=== PATIENT | female | born 1955 | race Caucasian/White ===

== ENCOUNTER → 2018-05-30 12:22 | Outpatient (CLI) | payer OTHER, SELFPAY ==
--- NOTE | 2018-05-30 | DI.MG.S_ITS ---
BILATERAL DIGITAL SCREENING MAMMOGRAM 3D/2D WITH CAD: 05/30/2018 CLINICAL: Routine screening. Comparison is made to exams dated: 12/16/2013 mammogram, 03/27/2007 mammogram, and 07/20/2011 mammogram - [facility]. The tissue of both breasts is heterogeneously dense. This may lower the sensitivity of mammography. Current study was also evaluated with a Computer Aided Detection (CAD) system. No significant masses, calcifications, or other findings are seen in either breast. There has been no significant interval change. IMPRESSION: NEGATIVE There is no mammographic evidence of malignancy. A 1 year screening mammogram is recommended. This exam was interpreted at Station ID: [id number]. NOTE: For mammograms, a report in lay terms will be sent to the patient. Approximately 15% of breast malignancies will not be visualized mammographically. In the management of a palpable breast mass, a negative mammogram must not discourage biopsy of a clinically suspicious lesion. Electronically Signed By: Bita matthew/sandrita:06/01/2018 08:38:02 letter sent: Normal Exam ACR BI-RADS Category 1: Negative [id number]
== END ==
PROVIDERS: PCP Internal Medicine; Visit Provider Internal Medicine
DX: Z12.31 Encounter for screening mammogram for malignant neoplasm of breast (principal)
CPT/HCPCS: 77063; 77067

== ENCOUNTER → 2019-02-22 12:49 | Outpatient (CLI) | payer OTHER, SELFPAY ==
--- NOTE | 2019-02-22 | DI.RAD.S_ITS ---
PROCEDURE: XR HAND LT MIN 3V INDICATIONS: PAIN OF LEFT THUMB TECHNIQUE: 3 views of the hand(s) acquired. COMPARISON: None. FINDINGS: Bones: No fractures or dislocations. Carpal bones are normally aligned. No suspicious bony lesions. First CMC and triscaphe joint degeneration Soft tissues: No suspicious soft tissue calcifications. IMPRESSION: Degenerative changes as above. If the patient's pain or other symptoms persist, consider further evaluation with MRI Dictated by: Kieran Oliva M.D. on 02/22/2019 at 13:24 Approved by: Kieran Oliva M.D. on 02/22/2019 at 13:27
== END ==
PROVIDERS: PCP Internal Medicine; Visit Provider Internal Medicine
DX: M79.645 Pain in left finger(s) (principal); M18.12 Unilateral primary osteoarthritis of first carpometacarpal joint, left hand; M19.032 Primary osteoarthritis, left wrist
CPT/HCPCS: 73130

== ENCOUNTER → 2019-10-28 10:48 | Outpatient (CLI) | payer OTHER, SELFPAY ==
[2019-10-28 11:59] LABS: Add Manual Diff / Slide Review NO; Basophils Absolute Auto 0 /uL (0-100); Basophils Percent Auto 0.8 % (0-2); Eosinophils Absolute Auto 100 /uL (0-450); Eosinophils Percent Auto 2.1 % (2-4); Hemoglobin 13.4 g/dL (12.0-16.0); Lymphocytes Absolute Auto 1300 /uL (1100-4500); Lymphocytes Percent Auto 28.8 % (25-40); Mean Corpuscular HGB Conc 33.5 % (30-36); Mean Corpuscular Volume 104.3 fL (80-100); Monocytes Absolute Auto 300 /uL (0-900); Monocytes Percent Auto 7.6 % (3-14); Neutrophils Absolute Auto 2700 /uL (1500-7000); Neutrophils Percent Auto 60.7 % (50-75); Platelet Count 200 X10^3/uL (150-400); Red Blood Cell Count 3.83 X10^6/uL (4.0-5.2); Red Cell Distribution Width 12.3 % (11.6-14.8); White Blood Cell Count 4.4 X10^3/uL (4.5-11.0)
[2019-10-28 12:05] LABS: Aspartate Aminotransferase 60 IU/L (14-36); BUN Creatinine Ratio 28.3 (6-22); Blood Urea Nitrogen 17 mg/dL (7-17); Calcium 9.3 mg/dL (8.4-10.2); Carbon Dioxide 27 mmol/L (22-32); Chloride 106 mmol/L (98-107); Cholesterol 201 mg/dL (140-199); Estimated Glomerular Filt Rate > 60.0 mL/min (>60); Glucose 111 mg/dL (80-110); HDL Cholesterol 83 mg/dL (40-60); HEMOLYSIS < 15 (0-50); LDL Cholesterol Calculated 104 mg/dL (<100); Potassium 4.6 mmol/L (3.4-5.1); Sodium 142 mmol/L (137-145); Triglycerides 72 mg/dL (35-150)
[2019-10-28 13:00] LABS: TSH w/ Reflex to FT4 3.48 uIU/mL (0.47-4.68)
== END ==
PROVIDERS: PCP Internal Medicine; Referring Provider Internal Medicine; Visit Provider Internal Medicine
DX: E03.9 Hypothyroidism, unspecified (principal); E78.2 Mixed hyperlipidemia; I10 Essential (primary) hypertension; I25.10 Atherosclerotic heart disease of native coronary artery without angina pectoris
CPT/HCPCS: 36415; 80048; 80061; 84443; 84450; 85025

== ENCOUNTER → 2019-11-03 13:53 | Outpatient (CLI) | payer OTHER, SELFPAY ==
--- NOTE | 2019-11-03 | DI.CT.S_ITS ---
PROCEDURE: CT ANGIO HEAD INDICATIONS: Nontraumatic subarachnoid hemorrhage, unspecified TECHNIQUE: Precontrast 4.5 mm thick angled axial sections acquired from the foramen magnum to the vertex. After the administration of intravenous contrast, 1 mm thick sections acquired through the [place] of [place]. Postcontrast 4.5 mm thick sections then re-acquired from the foramen magnum to the vertex. 10 mm thick iwlrsko-iettdtxed-ehsjgiaixr (MIP) reformats were acquired of the central intracranial vasculature. For radiation dose reduction, the following was used: automated exposure control, adjustment of mA and/or kV according to patient size. COMPARISON: [facility], CT, C-SPINE WITHOUT CONTRAST, 08/24/2017, 22:25. [facility], CT, HEAD WITHOUT CONTRAST, 08/24/2017, 22:25. [facility], CT, HEAD WITHOUT CONTRAST, 09/09/2016, 11:37. [facility], CT, HEAD WITHOUT CONTRAST, 03/24/2015, 8:44. [facility], CT, HEAD WITHOUT CONTRAST, 04/22/2014, 12:57. [facility], CT, ANGIO HEAD, 03/22/2015, 12:06. FINDINGS: Image quality: Excellent. Anterior circulation: Intracranial internal carotid arteries are normal in size and flow. The flow within the paired anterior cerebral arteries is normal and symmetric. The flow within the middle cerebral arteries is normal and symmetric. The anterior communicating artery is seen. No aneurysms are seen. Posterior circulation: Visualized portions of the vertebral arteries demonstrate normal caliber, and join to form a normal appearing basilar artery. Flow within the posterior cerebral arteries is normal and symmetric. No aneurysms are seen. CSF spaces: Ventricles are normal in size and shape. Basal cisterns are patent. No extra-axial fluid collections. Brain: No midline shift. No intracranial bleeds or masses. Velasco-white matter interface appears intact. Skull and face: Calvarium and facial bones appear intact, without suspicious lesions. Sinuses: Visualized sinuses and mastoids are clear. IMPRESSION: No intracranial hemorrhage is found. Intracranial CT angiogram appears normal for age. Please note that occasionally a small aneurysm may be identifiable by catheter angiography when not accurately detected by CT or MR angiography. Dictated by: Arsalan Horan M.D. on 11/03/2019 at 15:37 Approved by: Arsalan Horan M.D. on 11/03/2019 at 15:44
== END ==
PROVIDERS: PCP Internal Medicine; Referring Provider Internal Medicine; Visit Provider Internal Medicine
DX: I60.9 Nontraumatic subarachnoid hemorrhage, unspecified (principal)
CPT/HCPCS: 70496; Q9967

== ENCOUNTER 2019-11-17 16:42 | Emergency (ER) | payer OTHER, SELFPAY ==
[2019-11-17 16:47] VITALS: BP 187/74; PULSE 89; RESP 14; TEMP 35.9; O2SAT 100; BMI 17.9
[2019-11-17 17:51] LABS: Add Manual Diff / Slide Review NO; Basophils Absolute Auto 0 /uL (0-100); Basophils Percent Auto 0.6 % (0-2); Eosinophils Absolute Auto 0 /uL (0-450); Eosinophils Percent Auto 0.4 % (2-4); Hematocrit 42.2 % (36-46); Hemoglobin 14.4 g/dL (12.0-16.0); Lymphocytes Absolute Auto 900 /uL (1100-4500); Lymphocytes Percent Auto 11.8 % (25-40); Mean Corpuscular HGB Conc 34.1 % (30-36); Mean Corpuscular Hemoglobin 35.7 PG (26-34); Mean Corpuscular Volume 104.6 fL (80-100); Monocytes Absolute Auto 600 /uL (0-900); Monocytes Percent Auto 7.8 % (3-14); Neutrophils Absolute Auto 6000 /uL (1500-7000); Neutrophils Percent Auto 79.4 % (50-75); Platelet Count 183 X10^3/uL (150-400); Red Blood Cell Count 4.03 X10^6/uL (4.0-5.2); Red Cell Distribution Width 12.4 % (11.6-14.8); White Blood Cell Count 7.6 X10^3/uL (4.5-11.0)
[2019-11-17 18:01] LABS: INR 1.2 (0.9-1.3); Prothrombin Time 13.4 SECONDS (10.1-12.7)
[2019-11-17 18:03] LABS: PTT Partial Thromboplastin Tim 28 SECONDS (26.4-36.2)
[2019-11-17] MEDS: MORPHINE 4 MG/ML INJ IV ×2 (18:03→18:57)
[2019-11-17] MEDS: SODIUM CHLORIDE 0.9% 500 ML 1000 ML IV (18:03)
[2019-11-17] MEDS: ONDANSETRON 4 MG/2 ML INJ IV (18:03)
[2019-11-17 18:36] LABS: Amylase 70 U/L (30-110)
[2019-11-17 18:37] LABS: Alanine Aminotransferase 22 IU/L (<35); Albumin 4.4 g/dL (3.5-5.0); Albumin Globulin Ratio 1.4 (1.0-2.8); Alkaline Phosphatase 96 U/L (38-126); Aspartate Aminotransferase 27 IU/L (14-36); Bilirubin Total 0.6 mg/dL (0.2-1.3); Blood Urea Nitrogen 14 mg/dL (7-17); Calcium 9.4 mg/dL (8.4-10.2); Carbon Dioxide 26 mmol/L (22-32); Chloride 108 mmol/L (98-107); Estimated Glomerular Filt Rate > 60.0 mL/min (>60); Globulin 3.2 g/dL (1.7-4.1); Glucose 108 mg/dL (80-110); HEMOLYSIS < 15 (0-50); Lipase 53 U/L (23-300); Potassium 4.5 mmol/L (3.4-5.1); Sodium 140 mmol/L (137-145); Total Protein 7.6 g/dL (6.3-8.2)
--- NOTE | 2019-11-17 18:42 | DI.CT.S_ITS ---
PROCEDURE: CT ABDOMEN PELVIS W CON INDICATIONS: LLQ pain TECHNIQUE: After the administration of intravenous contrast, 5 mm thick sections acquired from the diaphragm to the symphysis. 5 mm coronal and sagittal reformats were acquired. For radiation dose reduction, the following was used: automated exposure control, adjustment of mA and/or kV according to patient size. COMPARISON: [facility], CT, ABDOMEN/PELVIS WITH CONTRAST, 10/21/2016, 12:20. FINDINGS: Image quality: Excellent. ABDOMEN: Lung bases: Lung bases are clear. Heart size is normal. Solid organs: Liver is normal in size and enhancement. Hepatic steatosis is seen. Gallbladder is within normal limits. Biliary system is non dilated. Pancreas enhances normally. There is laceration involving spleen measures up to 1.9 cm in depth with small perisplenic fluid collection suggestive of subcapsular hematoma. No adrenal nodules. Kidneys demonstrate normal size and enhancement, without hydronephrosis. Peritoneum and bowel: Bowel loops demonstrate normal wall thickness and caliber. No free air. Small amount of free fluid in lower pelvis is seen. Nodes and vessels: No retroperitoneal or mesenteric adenopathy by size criteria. Aorta and inferior vena cava are normal in size. Miscellaneous: No ventral hernias. PELVIS: Genitourinary: Bladder wall thickness is normal. Miscellaneous: No inguinal hernias or adenopathy. Bones: No suspicious bony lesions. No vertebral body compression fractures. IMPRESSION: 1. Finding is consistent with grade 2 splenic laceration with small subcapsular hematoma. Small amount of free fluid in left lower pelvis. 2. No other solid organ injury is seen abdomen or pelvis. No peritoneal free air. No bowel obstruction. Hepatic steatosis. Dictated by: Tanvir Austin M.D. on 11/17/2019 at 19:33 Approved by: Tanvir Austin M.D. on 11/17/2019 at 19:37
[2019-11-17 19:54] VITALS: BP 188/78; PULSE 74; RESP 21; O2SAT 99
[2019-11-17 20:21] LABS: Ethanol (ETOH) < 10 mg/dL
[2019-11-17 20:23] LABS: Monotest Negative (Negative)
[2019-11-17] MEDS: HYDROCODONE/ACET 5/325 TABLET 2 TAB PO (20:37)
--- NOTE | 2019-11-17 21:04 | ED_ITS ---
HPI - Abdominal Pain <SOILA FernandezBC - Last Filed: 11/17/19 21:13> General Chief Complaint: Abdominal Pain Stated Complaint: L abdominal pain x3 days Time Seen by Provider: 11/17/19 16:56 Source: patient Mode of arrival: Ambulatory Limitations: no limitations History of Present Illness HPI narrative: The patient is a 64-year-old female current smoker with history of brain aneurysm not on blood thinners who presents with a chief complaint of left-sided abdominal pain for 3 days. She denies any falls or trauma, denies any history of mononucleosis. She denies any fevers nausea vomiting or diarrhea. She denies any chest pain shortness of breath. She denies any fever. She denies any cough. She states that this is pain that is nonradiating on the left side of her abdomen. She denies any dysuria urgency or frequency. She denies any vaginal discharge. She states she last moved her bowels this morning and it was normal. She states that she has been eating and drinking well, most recently this morning. Upon solo interview without her , the patient denies any physical trauma or abuse. She denies any physical violence towards her. Related Data Home Medications Medication Instructions Recorded Confirmed alprazolam 0.5 mg PO DAILY 11/17/19 11/17/19 carisoprodol 350 mg PO QID PRN 11/17/19 11/17/19 diclofenac sodium 1 g TOPICAL QID PRN 11/17/19 11/17/19 hydrocodone-acetaminophen [[place]] 1 tab PO Q6H PRN 11/17/19 11/17/19 metoprolol succinate 50 mg PO DAILY 11/17/19 11/17/19 Allergies Allergy/AdvReac Type Severity Reaction Status Date / Time meperidine [MEPERIDINE] Allergy Unknown Verified 11/17/19 16:47 Review of Systems <MARC Fernandez - Last Filed: 11/17/19 21:13> Review of Systems Narrative: GENERAL: Denies chills, fatigue, malaise, fever, sweats. HEENT: Denies sinus pain, ear pain, sore throat, difficulty swallowing, dizziness. RESPIRATORY: Denies dyspnea, cough, wheezing, hemoptysis, sputum. CARDIOVASCULAR: Denies chest pain, palpitations, orthopnea, edema, GASTROINTESTINAL: See HPI : Denies dysuria, frequency, incontinence, hematuria, urinary retention. MUSCULOSKELETAL: denies weakness, joint pain, or bony pain SKIN: Denies rash, skin lesions, or other NEUROLOGIC: Denies weakness, headache, numbness, change in speech, confusion, seizures, incoordination. PSYCHIATRIC: No concerning psychosocial issues. 12 point review of systems is negative except for those stated above Patient History <Manda PatelRONNIE-NATALIE - Last Filed: 11/17/19 21:13> Social History Smoking Status: Current every day smoker Smoking Status: Current every day smoker alcohol intake frequency: a few times a week Alcohol type: wine Substance Use Type: does not use Exam <Manda PatelMARC - Last Filed: 11/17/19 21:13> Narrative Exam Narrative: GENERAL: Thin female who appears uncomfortable HEAD: Atraumatic. Normocephalic. No temporal or scalp tenderness. EYES: Pupils equal round and reactive. Extraocular motions intact. No scleral icterus. No injection or drainage. ENT: Nose without bleeding, purulent drainage or septal hematoma. Throat without erythema, tonsillar hypertrophy or exudate. Uvula midline. Airway patent. NECK: Trachea midline. No JVD or lymphadenopathy. Supple, nontender, no meningeal signs. CARDIOVASCULAR: Regular rate and rhythm without murmurs, gallops, or rubs. RESPIRATORY: Clear to auscultation. Breath sounds equal bilaterally. No wheezes, rales, or rhonchi. No cough. No increased respiratory effort. No accessory muscle use. GASTROINTESTINAL: Abdomen soft, active bowel sounds all 4 quadrants. Pain to palpation with guarding noted left mid abdomen. No pain to palpation right lower quadrant. No pain at McBurney's point EXTREMITIES: No clubbing, cyanosis, or edema. No joint tenderness, effusion, or edema noted. BACK: Nontender without deformity or crepitance. No flank tenderness. NEURO: AOx3. SKIN: No rash or erythema on visible skin. Slightly mottled looking appearance. Patient states this is normal for her. Initial Vital Signs Initial Vital Signs: Vital Signs Temperature 96.6 F L 11/17/19 16:47 Pulse Rate 89 11/17/19 16:47 Respiratory Rate 14 11/17/19 16:47 Blood Pressure 187/74 H 11/17/19 16:47 Pulse Oximetry 100 11/17/19 16:47 <Manda Angeles DO - Last Filed: 11/18/19 05:36> Initial Vital Signs Initial Vital Signs: Vital Signs Temperature 96.6 F L 11/17/19 16:47 Pulse Rate 89 11/17/19 16:47 Respiratory Rate 14 11/17/19 16:47 Blood Pressure 187/74 H 11/17/19 16:47 Pulse Oximetry 100 11/17/19 16:47 Course <MARC Fernandez - Last Filed: 11/17/19 21:13> Orders Ordered: Discontinued Medications Hydrocodone Bitart/Acetaminophen ([place] 5/325) 2 tab PO NOW ONE Stop: 11/17/19 20:34 Last Admin: 11/17/19 20:37 Dose: 2 tab Documented by: DELON Sodium Chloride (Normal Saline 0.9%) 500 mls @ 1,000 mls/hr IV BOLUS ONE Stop: 11/17/19 18:13 Last Infusion: 11/17/19 18:57 Dose: 0 mls/hr Documented by: Admin: 11/17/19 18:03 Dose: 1,000 mls/hr Documented by: SURJIT Morphine Sulfate (Morphine) 4 mg IV NOW ONE Stop: 11/17/19 17:45 Last Admin: 11/17/19 18:03 Dose: 4 mg Documented by: SURJIT Morphine Sulfate (Morphine) 4 mg IV NOW ONE Stop: 11/17/19 18:28 Last Admin: 11/17/19 18:57 Dose: 4 mg Documented by: DELON Ondansetron HCl (Zofran) 4 mg IV NOW ONE Stop: 11/17/19 17:45 Last Admin: 11/17/19 18:03 Dose: 4 mg Documented by: SURJIT Consultations Consultation #1: Given the patient's CT results, I spoke with Dr. Fish, surgeon on-call. He states that the patient would be safe to go home as she has had pain for 3 days and her hemoglobin is at 14. Additionally she is not tachycardic, not hypotensive. I discussed her mom looking appearance, but the patient states that this is normal for her. He encourage is daily or every other day hemoglobin and hematocrit drawings by her primary care provider. Discussed at length rest, avoiding trauma, not drinking etcetera. Time: 20:30 Vital Signs Vital signs: Vital Signs - 8 hr 11/17/19 16:47 11/17/19 19:54 Temperature 96.6 F L Pulse Rate 89 74 Respiratory Rate 14 21 Blood Pressure 187/74 H Blood Pressure [Left Arm] 188/78 H Pulse Oximetry 100 99 <Manda Angeles DO - Last Filed: 11/18/19 05:36> Orders Ordered: Discontinued Medications Hydrocodone Bitart/Acetaminophen ([place] 5/325) 2 tab PO NOW ONE Stop: 11/17/19 20:34 Last Admin: 11/17/19 20:37 Dose: 2 tab Documented by: DELON Sodium Chloride (Normal Saline 0.9%) 500 mls @ 1,000 mls/hr IV BOLUS ONE Stop: 11/17/19 18:13 Last Infusion: 11/17/19 18:57 Dose: 0 mls/hr Documented by: Admin: 11/17/19 18:03 Dose: 1,000 mls/hr Documented by: SURJIT Morphine Sulfate (Morphine) 4 mg IV NOW ONE Stop: 11/17/19 17:45 Last Admin: 11/17/19 18:03 Dose: 4 mg Documented by: SURJIT Morphine Sulfate (Morphine) 4 mg IV NOW ONE Stop: 11/17/19 18:28 Last Admin: 11/17/19 18:57 Dose: 4 mg Documented by: DELON Ondansetron HCl (Zofran) 4 mg IV NOW ONE Stop: 11/17/19 17:45 Last Admin: 11/17/19 18:03 Dose: 4 mg Documented by: SURJIT Vital Signs Vital signs: Vital Signs - 8 hr 11/17/19 16:47 11/17/19 19:54 Temperature 96.6 F L Pulse Rate 89 74 Respiratory Rate 14 21 Blood Pressure 187/74 H Blood Pressure [Left Arm] 188/78 H Pulse Oximetry 100 99 MDM - Abdominal Pain <MARC Fernandez - Last Filed: 11/17/19 21:13> Lab Data Result diagrams: 11/17/19 17:40 11/17/19 18:26 Labs: Lab Results 11/17/19 11/17/19 11/17/19 Range/Units 17:40 17:40 18:14 WBC 7.6 (4.5-11.0) X10^3/uL RBC 4.03 (4.0-5.2) X10^6/uL Hgb 14.4 (12.0-16.0) g/dL Hct 42.2 (36-46) % MCV 104.6 H (80-100) fL MCH 35.7 H (26-34) PG MCHC 34.1 (30-36) % RDW 12.4 (11.6-14.8) % Plt Count 183 (150-400) X10^3/uL Neut % (Auto) 79.4 H (50-75) % Lymph % (Auto) 11.8 L (25-40) % [place] % (Auto) 7.8 (3-14) % Eos % (Auto) 0.4 L (2-4) % Baso % (Auto) 0.6 (0-2) % Neut # (Auto) 6000 (1323-7778) /uL Lymph # (Auto) 900 L (6422-6481) /uL [place] # (Auto) 600 (0-900) /uL Eos # (Auto) 0 (0-450) /uL Baso # (Auto) 0 (0-100) /uL PT 13.4 H (10.1-12.7) SECONDS INR 1.2 (0.9-1.3) APTT 28 (26.4-36.2) SECONDS Sodium (137-145) mmol/L Potassium (3.4-5.1) mmol/L Chloride (98-107) mmol/L Carbon Dioxide (22-32) mmol/L BUN (7-17) mg/dL Creatinine (0.52-1.04) mg/dL Estimated GFR (>60) mL/min BUN/Creatinine Ratio (6-22) Glucose (80-110) mg/dL Calcium (8.4-10.2) mg/dL Total Bilirubin (0.2-1.3) mg/dL AST (14-36) IU/L ALT (<35) IU/L Alkaline Phosphatase (38-126) U/L Total Protein (6.3-8.2) g/dL Albumin (3.5-5.0) g/dL Globulin (1.7-4.1) g/dL Albumin/Globulin Ratio (1.0-2.8) Amylase (30-110) U/L Lipase (23-300) U/L Ethyl Alcohol ( - 10) mg/dL Monoscreen Negative (Negative) 11/17/19 11/17/19 11/17/19 Range/Units 18:14 18:18 18:26 WBC (4.5-11.0) X10^3/uL RBC (4.0-5.2) X10^6/uL Hgb (12.0-16.0) g/dL Hct (36-46) % MCV (80-100) fL MCH (26-34) PG MCHC (30-36) % RDW (11.6-14.8) % Plt Count (150-400) X10^3/uL Neut % (Auto) (50-75) % Lymph % (Auto) (25-40) % [place] % (Auto) (3-14) % Eos % (Auto) (2-4) % Baso % (Auto) (0-2) % Neut # (Auto) (5939-4908) /uL Lymph # (Auto) (5154-2478) /uL [place] # (Auto) (0-900) /uL Eos # (Auto) (0-450) /uL Baso # (Auto) (0-100) /uL PT (10.1-12.7) SECONDS INR (0.9-1.3) APTT (26.4-36.2) SECONDS Sodium 140 (137-145) mmol/L Potassium 4.5 (3.4-5.1) mmol/L Chloride 108 H (98-107) mmol/L Carbon Dioxide 26 (22-32) mmol/L BUN 14 (7-17) mg/dL Creatinine 0.50 L (0.52-1.04) mg/dL Estimated GFR > 60.0 (>60) mL/min BUN/Creatinine Ratio 28.0 H (6-22) Glucose 108 (80-110) mg/dL Calcium 9.4 (8.4-10.2) mg/dL Total Bilirubin 0.6 (0.2-1.3) mg/dL AST 27 (14-36) IU/L ALT 22 (<35) IU/L Alkaline Phosphatase 96 (38-126) U/L Total Protein 7.6 (6.3-8.2) g/dL Albumin 4.4 (3.5-5.0) g/dL Globulin 3.2 (1.7-4.1) g/dL Albumin/Globulin Ratio 1.4 (1.0-2.8) Amylase 70 (30-110) U/L Lipase 53 (23-300) U/L Ethyl Alcohol < 10 ( - 10) mg/dL Monoscreen (Negative) Point of care testing: Urine Dip Bedside Urine Glucose Negative Bedside Urine Bilirubin - Negative Bedside Urine Ketone - Negative Urine Specific [place] 1.010 Bedside Urine Occult Blood - Negative Bedside Urine pH 6.0 Bedside Urine Protein - Negative Bedside Urine Urobilinogen - Negative Bedside Urine Nitrite - Negative Bedside Urine Leukocytes - Negative Esterase Imaging Data CT scan - abdomen/pelvis: Radiologist's Impression: [address] [place] [id number] Scan Report Signed Patient: Chelsy Perez LMR#: [id number] : 5Acct:[id number] Age/Sex: 64 / FDate of Service: 11/17/19 Loc: ED Accession Number: [id number] Procedure: CT abdomen pelvis w con Ordering Provider: Manda Patel [facility]- PROCEDURE: CT ABDOMEN PELVIS W CON INDICATIONS: LLQ pain TECHNIQUE: After the administration of intravenous contrast, 5 mm thick sections acquired from the diaphragm to the symphysis. 5 mm coronal and sagittal reformats were acquired. For radiation dose reduction, the following was used: automated exposure control, adjustment of mA and/or kV according to patient size. COMPARISON: [facility], CT, ABDOMEN/PELVIS WITH CONTRAST, 10/21/2016, 12:20. FINDINGS: Image quality: Excellent. ABDOMEN: Lung bases: Lung bases are clear. Heart size is normal. Solid organs: Liver is normal in size and enhancement. Hepatic steatosis is seen. Gallbladder is within normal limits. Biliary system is non dilated. Pancreas enhances normally. There is laceration involving spleen measures up to 1.9 cm in depth with small perisplenic fluid collection suggestive of subcapsular hematoma. No adrenal nodules. Kidneys demonstrate normal size and enhancement, without hydronephrosis. Peritoneum and bowel: Bowel loops demonstrate normal wall thickness and caliber. No free air. Small amount of free fluid in lower pelvis is seen. Nodes and vessels: No retroperitoneal or mesenteric adenopathy by size criteria. Aorta and inferior vena cava are normal in size. Miscellaneous: No ventral hernias. PELVIS: Genitourinary: Bladder wall thickness is normal. Miscellaneous: No inguinal hernias or adenopathy. Bones: No suspicious bony lesions. No vertebral body compression fractures. IMPRESSION: 1. Finding is consistent with grade 2 splenic laceration with small subcapsular hematoma. Small amount of free fluid in left lower pelvis. 2. No other solid organ injury is seen abdomen or pelvis. No peritoneal free air. No bowel obstruction. Hepatic steatosis. Dictated by: Tanvir Austin M.D. on 11/17/2019 at 19:33 Approved by: Tanvir Austin M.D. on 11/17/2019 at 19:37 MDM Narrative Medical decision making narrative: The patient is a 64-year-old female who presents with a chief complaint of left-sided abdominal pain for 3 days. She initially denied any trauma has no signs of systemic illness and is afebrile. She is eating and drinking well. Lab work is grossly normal with normal hemoglobin and hematocrit. She is not hypotensive, not tachycardic. CT shows grade 2 splenic lack with small subcapsular hematoma. I spoke with surgery on- call, who states the patient could go home with very strict PCP follow-up and lab work to check hemoglobin hematocrit every day or every other day. The patient states understanding of this and is very happy to go home. She states that she has Vicodin at home as per her pain contract and will follow up with primary care provider. I discussed at length safety precautions, avoiding trauma, avoiding alcohol etcetera. Discussed at length strict return precautions of any acute concerns such as syncope, etcetera. Patient has been of no questions or concerns upon discharge and state understanding of return precautions as well as follow-up care. <Manda Angeles, DO - Last Filed: 11/18/19 05:36> Lab Data Attestation: I reviewed the patient's lab results. Labs: Lab Results 11/17/19 11/17/19 11/17/19 Range/Units 17:40 17:40 18:14 WBC 7.6 (4.5-11.0) X10^3/uL RBC 4.03 (4.0-5.2) X10^6/uL Hgb 14.4 (12.0-16.0) g/dL Hct 42.2 (36-46) % MCV 104.6 H (80-100) fL MCH 35.7 H (26-34) PG MCHC 34.1 (30-36) % RDW 12.4 (11.6-14.8) % Plt Count 183 (150-400) X10^3/uL Neut % (Auto) 79.4 H (50-75) % Lymph % (Auto) 11.8 L (25-40) % [place] % (Auto) 7.8 (3-14) % Eos % (Auto) 0.4 L (2-4) % Baso % (Auto) 0.6 (0-2) % Neut # (Auto) 6000 (7118-6595) /uL Lymph # (Auto) 900 L (9200-8625) /uL [place] # (Auto) 600 (0-900) /uL Eos # (Auto) 0 (0-450) /uL Baso # (Auto) 0 (0-100) /uL PT 13.4 H (10.1-12.7) SECONDS INR 1.2 (0.9-1.3) APTT 28 (26.4-36.2) SECONDS Sodium (137-145) mmol/L Potassium (3.4-5.1) mmol/L Chloride (98-107) mmol/L Carbon Dioxide (22-32) mmol/L BUN (7-17) mg/dL Creatinine (0.52-1.04) mg/dL Estimated GFR (>60) mL/min BUN/Creatinine Ratio (6-22) Glucose (80-110) mg/dL Calcium (8.4-10.2) mg/dL Total Bilirubin (0.2-1.3) mg/dL AST (14-36) IU/L ALT (<35) IU/L Alkaline Phosphatase (38-126) U/L Total Protein (6.3-8.2) g/dL Albumin (3.5-5.0) g/dL Globulin (1.7-4.1) g/dL Albumin/Globulin Ratio (1.0-2.8) Amylase (30-110) U/L Lipase (23-300) U/L Ethyl Alcohol ( - 10) mg/dL Monoscreen Negative (Negative) 11/17/19 11/17/19 11/17/19 Range/Units 18:14 18:18 18:26 WBC (4.5-11.0) X10^3/uL RBC (4.0-5.2) X10^6/uL Hgb (12.0-16.0) g/dL Hct (36-46) % MCV (80-100) fL MCH (26-34) PG MCHC (30-36) % RDW (11.6-14.8) % Plt Count (150-400) X10^3/uL Neut % (Auto) (50-75) % Lymph % (Auto) (25-40) % [place] % (Auto) (3-14) % Eos % (Auto) (2-4) % Baso % (Auto) (0-2) % Neut # (Auto) (6898-5474) /uL Lymph # (Auto) (0374-9521) /uL [place] # (Auto) (0-900) /uL Eos # (Auto) (0-450) /uL Baso # (Auto) (0-100) /uL PT (10.1-12.7) SECONDS INR (0.9-1.3) APTT (26.4-36.2) SECONDS Sodium 140 (137-145) mmol/L Potassium 4.5 (3.4-5.1) mmol/L Chloride 108 H (98-107) mmol/L Carbon Dioxide 26 (22-32) mmol/L BUN 14 (7-17) mg/dL Creatinine 0.50 L (0.52-1.04) mg/dL Estimated GFR > 60.0 (>60) mL/min BUN/Creatinine Ratio 28.0 H (6-22) Glucose 108 (80-110) mg/dL Calcium 9.4 (8.4-10.2) mg/dL Total Bilirubin 0.6 (0.2-1.3) mg/dL AST 27 (14-36) IU/L ALT 22 (<35) IU/L Alkaline Phosphatase 96 (38-126) U/L Total Protein 7.6 (6.3-8.2) g/dL Albumin 4.4 (3.5-5.0) g/dL Globulin 3.2 (1.7-4.1) g/dL Albumin/Globulin Ratio 1.4 (1.0-2.8) Amylase 70 (30-110) U/L Lipase 53 (23-300) U/L Ethyl Alcohol < 10 ( - 10) mg/dL Monoscreen (Negative) Point of care testing: Urine Dip Bedside Urine Glucose Negative Bedside Urine Bilirubin - Negative Bedside Urine Ketone - Negative Urine Specific [place] 1.010 Bedside Urine Occult Blood - Negative Bedside Urine pH 6.0 Bedside Urine Protein - Negative Bedside Urine Urobilinogen - Negative Bedside Urine Nitrite - Negative Bedside Urine Leukocytes - Negative Esterase MDM Narrative Medical decision making narrative: Patient's case reviewed, patient has a history of alcohol use and may have had fall or injury. She has had pain for several days. Her hemoglobin is stable but she does appear to have a grade 2 splenic laceration with a small subcapsular hematoma. Small amount of free fluid in lower pelvis. Patient has been hemodynamically stable. A this time point for observation with strict return precautions on low threshold for return. Patient is not on any blood thinners. Discharge Plan Departure Patient Disposition: Home Clinical Impression: Spleen laceration Qualifiers: Encounter type: initial encounter Qualified Code(s): S36.039A - Unspecified laceration of spleen, initial encounter Discharge Date/Time: 11/17/19 21:14 Instructions: DI for Abdominal Pain-Adult Activity Restrictions/Additional Instructions: Thank you for trusting us with your emergency department care today Your CT showed a grade 2 splenic laceration. I spoke with Dr Fish, the surgeon on-call. He states that your lab work is reassuring, and that you can go home if you can agree to be safe. Please avoid falls, avoid trauma, of avoid driving due to risk of motor vehicle accident. Please follow-up with your primary care provider tomorrow. The surgeon recommends that you check your lab work every day or every other day to make sure that your not losing a lot of blood. Please come back to the emergency department for any acute concerns such as passing out, etcetera Prescriptions: No Action carisoprodol 350 mg tablet 350 mg PO QID PRN (Reason: Muscle Spasm) RF: 0 metoprolol succinate 50 mg tablet extended release 24 hr 50 mg PO DAILY RF: 0 alprazolam 0.5 mg tablet 0.5 mg PO DAILY RF: 0 diclofenac sodium 1 % gel 1 g TOPICAL QID PRN (Reason: pain) RF: 0 hydrocodone-acetaminophen [[place]] 5 MG/325 MG tablet 1 tab PO Q6H PRN (Reason: pain) RF: 0 Referrals: Jay Lopes MD [Primary Care Provider] -
== END 2019-11-17 21:14 | disposition home or self-care (01) ==
PROVIDERS: Emergency Medicine; Emergency Provider Nurse Practitioner Family; PCP Internal Medicine
DX: S36.039A Unspecified laceration of spleen, initial encounter (principal)
CPT/HCPCS: 36415; 74177; 80053; 80320; 81003; 82150; 83690; 85025; 85610; 85730; 86318; 93005; 93010; 96361; 96374; 96375; 96376; 99284; J2270; J2405; Q9967

== ENCOUNTER → 2019-11-18 11:59 | Outpatient (ROUT) | payer OTHER, SELFPAY ==
[2019-11-18 12:05] LABS: Add Manual Diff / Slide Review NO; Basophils Absolute Auto 0 /uL (0-100); Basophils Percent Auto 0.5 % (0-2); Eosinophils Absolute Auto 100 /uL (0-450); Eosinophils Percent Auto 1.6 % (2-4); Hematocrit 39.3 % (36-46); Hemoglobin 13.2 g/dL (12.0-16.0); Lymphocytes Absolute Auto 700 /uL (1100-4500); Lymphocytes Percent Auto 12.1 % (25-40); Mean Corpuscular HGB Conc 33.5 % (30-36); Mean Corpuscular Hemoglobin 35.4 PG (26-34); Mean Corpuscular Volume 105.6 fL (80-100); Monocytes Absolute Auto 500 /uL (0-900); Monocytes Percent Auto 9.1 % (3-14); Neutrophils Absolute Auto 4500 /uL (1500-7000); Neutrophils Percent Auto 76.7 % (50-75); Platelet Count 180 X10^3/uL (150-400); Red Blood Cell Count 3.72 X10^6/uL (4.0-5.2); Red Cell Distribution Width 12.6 % (11.6-14.8); White Blood Cell Count 5.9 X10^3/uL (4.5-11.0)
== END ==
PROVIDERS: PCP Internal Medicine; Visit Provider Internal Medicine
DX: S36.039D Unspecified laceration of spleen, subsequent encounter (principal)
CPT/HCPCS: 85025

== ENCOUNTER → 2019-11-19 12:14 | Outpatient (CLI) | payer OTHER, SELFPAY ==
[2019-11-19 12:28] LABS: Add Manual Diff / Slide Review NO; Basophils Absolute Auto 0 /uL (0-100); Basophils Percent Auto 0.9 % (0-2); Eosinophils Absolute Auto 100 /uL (0-450); Eosinophils Percent Auto 1.9 % (2-4); Hematocrit 40.6 % (36-46); Hemoglobin 13.5 g/dL (12.0-16.0); Lymphocytes Absolute Auto 1000 /uL (1100-4500); Lymphocytes Percent Auto 17.8 % (25-40); Mean Corpuscular HGB Conc 33.3 % (30-36); Mean Corpuscular Hemoglobin 35.1 PG (26-34); Mean Corpuscular Volume 105.4 fL (80-100); Monocytes Absolute Auto 400 /uL (0-900); Neutrophils Absolute Auto 3900 /uL (1500-7000); Neutrophils Percent Auto 71.4 % (50-75); Platelet Count 214 X10^3/uL (150-400); Red Blood Cell Count 3.85 X10^6/uL (4.0-5.2); Red Cell Distribution Width 12.4 % (11.6-14.8); White Blood Cell Count 5.5 X10^3/uL (4.5-11.0)
== END ==
PROVIDERS: PCP Internal Medicine; Referring Provider Internal Medicine; Visit Provider Internal Medicine
DX: S36.039D Unspecified laceration of spleen, subsequent encounter (principal)
CPT/HCPCS: 36415; 85025

== ENCOUNTER → 2019-11-20 11:33 | Outpatient (CLI) | payer OTHER, SELFPAY ==
[2019-11-20 12:06] LABS: Add Manual Diff / Slide Review NO; Basophils Absolute Auto 0 /uL (0-100); Basophils Percent Auto 0.4 % (0-2); Eosinophils Absolute Auto 100 /uL (0-450); Hematocrit 40.8 % (36-46); Hemoglobin 13.6 g/dL (12.0-16.0); Lymphocytes Absolute Auto 1300 /uL (1100-4500); Lymphocytes Percent Auto 21.1 % (25-40); Mean Corpuscular HGB Conc 33.4 % (30-36); Mean Corpuscular Hemoglobin 35.2 PG (26-34); Mean Corpuscular Volume 105.5 fL (80-100); Monocytes Absolute Auto 600 /uL (0-900); Monocytes Percent Auto 10.4 % (3-14); Neutrophils Absolute Auto 4000 /uL (1500-7000); Neutrophils Percent Auto 66.1 % (50-75); Platelet Count 237 X10^3/uL (150-400); Red Blood Cell Count 3.87 X10^6/uL (4.0-5.2); Red Cell Distribution Width 12.6 % (11.6-14.8)
== END ==
PROVIDERS: PCP Internal Medicine; Referring Provider Internal Medicine; Visit Provider Internal Medicine
DX: S36.039D Unspecified laceration of spleen, subsequent encounter (principal)
CPT/HCPCS: 36415; 85025

== ENCOUNTER → 2019-11-25 18:51 | Outpatient (ROUT) | payer OTHER, SELFPAY ==
[2019-11-25 19:11] LABS: Add Manual Diff / Slide Review NO; Basophils Absolute Auto 0 /uL (0-100); Basophils Percent Auto 0.7 % (0-2); Eosinophils Absolute Auto 100 /uL (0-450); Eosinophils Percent Auto 1.3 % (2-4); Hematocrit 42.7 % (36-46); Hemoglobin 13.9 g/dL (12.0-16.0); Lymphocytes Absolute Auto 1200 /uL (1100-4500); Lymphocytes Percent Auto 24.2 % (25-40); Mean Corpuscular HGB Conc 32.6 % (30-36); Mean Corpuscular Hemoglobin 34.5 PG (26-34); Mean Corpuscular Volume 105.7 fL (80-100); Monocytes Absolute Auto 600 /uL (0-900); Monocytes Percent Auto 11.5 % (3-14); Neutrophils Absolute Auto 3100 /uL (1500-7000); Neutrophils Percent Auto 62.3 % (50-75); Platelet Count 355 X10^3/uL (150-400); Red Blood Cell Count 4.03 X10^6/uL (4.0-5.2); Red Cell Distribution Width 12.7 % (11.6-14.8)
[2019-11-25 20:26] LABS: Vitamin B12 235 pg/mL (239-931)
== END ==
PROVIDERS: PCP Internal Medicine; Visit Provider Internal Medicine
DX: S36.039D Unspecified laceration of spleen, subsequent encounter (principal); E53.8 Deficiency of other specified B group vitamins
CPT/HCPCS: 82607; 85025

== ENCOUNTER → 2020-06-12 13:16 | Outpatient (CLI) | payer MEDICARE, SELFPAY ==
[2020-06-12 15:40] LABS: Vitamin B12 598 pg/mL (239-931)
== END ==
PROVIDERS: PCP Internal Medicine; Referring Provider Internal Medicine; Visit Provider Internal Medicine
DX: E53.8 Deficiency of other specified B group vitamins (principal)
CPT/HCPCS: 36415; 82607

== ENCOUNTER → 2021-02-14 14:53 | Outpatient (ROUT) | payer MEDICARE, SELFPAY ==
[2021-02-14 15:06] LABS: Add Manual Diff / Slide Review NO; Basophils Absolute Auto 0 /uL (0-100); Basophils Percent Auto 1.1 % (0-2); Eosinophils Absolute Auto 100 /uL (0-450); Eosinophils Percent Auto 1.3 % (2-4); Hematocrit 41.3 % (36-46); Hemoglobin 13.8 g/dL (12.0-16.0); Lymphocytes Absolute Auto 1000 /uL (1100-4500); Lymphocytes Percent Auto 24.8 % (25-40); Mean Corpuscular HGB Conc 33.5 % (30-36); Mean Corpuscular Hemoglobin 34.7 PG (26-34); Mean Corpuscular Volume 103.6 fL (80-100); Monocytes Absolute Auto 400 /uL (0-900); Monocytes Percent Auto 9.8 % (3-14); Neutrophils Absolute Auto 2500 /uL (1500-7000); Platelet Count 192 X10^3/uL (150-400); Red Blood Cell Count 3.98 X10^6/uL (4.0-5.2); Red Cell Distribution Width 12.1 % (11.6-14.8)
[2021-02-14 15:25] LABS: Alanine Aminotransferase 37 IU/L (<35); Albumin 4.2 g/dL (3.5-5.0); Albumin Globulin Ratio 1.4 (1.0-2.8); Alkaline Phosphatase 81 U/L (38-126); Aspartate Aminotransferase 61 IU/L (14-36); BUN Creatinine Ratio 31.1 (6-22); Bilirubin Total 0.5 mg/dL (0.2-1.3); Blood Urea Nitrogen 14 mg/dL (7-17); Calcium 9.3 mg/dL (8.4-10.2); Carbon Dioxide 28 mmol/L (22-32); Chloride 107 mmol/L (98-107); Cholesterol 194 mg/dL (140-199); Estimated Glomerular Filt Rate > 60.0 mL/min (>60); Glucose 98 mg/dL (80-110); HDL Cholesterol 99 mg/dL (40-60); HEMOLYSIS < 15 (0-50); LDL Cholesterol Calculated 75 mg/dL (<100); Potassium 4.4 mmol/L (3.4-5.1); Sodium 141 mmol/L (137-145); Total Protein 7.2 g/dL (6.3-8.2); Triglycerides 99 mg/dL (35-150)
[2021-02-14 15:58] LABS: TSH w/ Reflex to FT4 2.76 uIU/mL (0.47-4.68)
== END ==
PROVIDERS: PCP Internal Medicine; Visit Provider Internal Medicine
DX: I25.10 Atherosclerotic heart disease of native coronary artery without angina pectoris (principal); E78.2 Mixed hyperlipidemia; E03.9 Hypothyroidism, unspecified
CPT/HCPCS: 80053; 80061; 84443; 85025

== ENCOUNTER → 2021-05-19 09:05 | Outpatient (CLI) | payer MEDICARE, SELFPAY ==
--- NOTE | 2021-05-19 09:06 | DI.MG.S_ITS ---
BILATERAL DIGITAL SCREENING MAMMOGRAM 3D/2D WITH CAD: 05/19/2021 CLINICAL: Routine screening. Comparison is made to exams dated: 05/30/2018 mammogram, 12/16/2013 mammogram, and 07/20/2011 mammogram - [facility]. The tissue of both breasts is heterogeneously dense. This may lower the sensitivity of mammography. Current study was also evaluated with a Computer Aided Detection (CAD) system. No significant masses, calcifications, or other findings are seen in either breast. There has been no significant interval change. IMPRESSION: NEGATIVE There is no mammographic evidence of malignancy. A 1 year screening mammogram is recommended. This exam was interpreted at Station ID: [id number]. NOTE: For mammograms, a report in lay terms will be sent to the patient. Approximately 15% of breast malignancies will not be visualized mammographically. In the management of a palpable breast mass, a negative mammogram must not discourage biopsy of a clinically suspicious lesion. Electronically Signed By: Keaton franklin/sandrita:05/21/2021 07:33:47 letter sent: Normal Exam ACR BI-RADS Category 1: Negative [id number]
== END ==
PROVIDERS: PCP Internal Medicine; Referring Provider Internal Medicine; Visit Provider Internal Medicine
DX: Z12.31 Encounter for screening mammogram for malignant neoplasm of breast (principal)
CPT/HCPCS: 77063; 77067

== ENCOUNTER → 2022-03-18 06:47 | Outpatient (CLI) | payer MEDICARE, SELFPAY ==
--- NOTE | 2022-03-18 06:48 | DI.RAD.S_ITS ---
PROCEDURE: XR CHEST 2V INDICATIONS: COPD TECHNIQUE: 2 views of the chest were acquired. COMPARISON: None. FINDINGS: Surgical changes and devices: None. Lungs and pleura: The lungs are hyperinflated, a finding that can be seen in the setting of COPD. There is hazy inferior right perihilar opacity, likely atelectasis of the right middle lobe as seen on the lateral view. No pleural effusions or pneumothorax. Mediastinum: Mediastinal contours are normal. Heart size is normal. Bones and chest wall: No suspicious bony abnormalities. Soft tissues appear unremarkable. IMPRESSION: Findings of right middle lobe atelectasis/volume loss, nonspecific. This could be related to mucous plugging but other etiologies including a central obstructing lesion are also possible. Continued imaging follow up to ensure resolution is recommended, consider repeat chest radiographs in 6-8 weeks, or sooner at clinical discretion. CT of the chest with contrast could also be obtained for further evaluation. Dictated by: Rudi Peralta M.D. on 03/18/2022 at 9:10 Approved by: Rudi Peralta M.D. on 03/18/2022 at 9:23
[2022-03-18 07:25] LABS: Add Manual Diff / Slide Review NO; Basophils Absolute Auto 0 /uL (0-100); Basophils Percent Auto 0.9 % (0-2); Eosinophils Absolute Auto 100 /uL (0-450); Hematocrit 40.2 % (36-46); Hemoglobin 13.6 g/dL (12.0-16.0); Lymphocytes Absolute Auto 1500 /uL (1100-4500); Lymphocytes Percent Auto 40.5 % (25-40); Mean Corpuscular HGB Conc 33.9 % (30-36); Mean Corpuscular Hemoglobin 34.6 PG (26-34); Monocytes Absolute Auto 500 /uL (0-900); Monocytes Percent Auto 12.1 % (3-14); Neutrophils Absolute Auto 1600 /uL (1500-7000); Neutrophils Percent Auto 43.5 % (50-75); Platelet Count 154 X10^3/uL (150-400); Red Blood Cell Count 3.94 X10^6/uL (4.0-5.2); Red Cell Distribution Width 12.9 % (11.6-14.8); White Blood Cell Count 3.7 X10^3/uL (4.5-11.0)
[2022-03-18 07:33] LABS: Alanine Aminotransferase 24 IU/L (<35); Albumin Globulin Ratio 1.3 (1.0-2.8); Alkaline Phosphatase 73 U/L (38-126); Aspartate Aminotransferase 39 IU/L (14-36); BUN Creatinine Ratio 32.7 (6-22); Bilirubin Total 0.5 mg/dL (0.2-1.3); Blood Urea Nitrogen 18 mg/dL (7-17); Calcium 9.1 mg/dL (8.4-10.2); Carbon Dioxide 29 mmol/L (22-32); Chloride 109 mmol/L (98-107); Cholesterol 189 mg/dL (140-199); Estimated Glomerular Filt Rate > 60 mL/min (>60); Glucose 90 mg/dL (80-110); HDL Cholesterol 72 mg/dL (40-60); HEMOLYSIS < 15 (0-50); LDL Cholesterol Calculated 93 mg/dL (<100); Lipase 77 U/L (23-300); Sodium 142 mmol/L (137-145); Triglycerides 118 mg/dL (35-150)
[2022-03-18 08:10] LABS: TSH w/ Reflex to FT4 3.84 uIU/mL (0.47-4.68)
--- NOTE | 2022-03-18 08:45 | DI.CT.S_ITS ---
PROCEDURE: CT ABDOMEN PELVIS W CON INDICATIONS: abdominal pain, history of splenic laceration TECHNIQUE: After the administration of oral and intravenous contrast, axial sections were acquired from the lung bases to the pubic symphysis. Coronal and sagittal reformats were performed. For radiation dose reduction, the following was used: automated exposure control, adjustment of mA and/or kV according to patient size. COMPARISON:None. FINDINGS: Image quality: Excellent. Lung bases: Unremarkable. Heart: No significant findings. ABDOMEN: Liver: Diffusely hypodense suggesting fatty infiltration. Gallbladder: Unremarkable. Biliary ducts: Unremarkable. Pancreas: Unremarkable. Spleen: Unremarkable. Adrenal Glands: Unremarkable. Kidneys and Ureters: Unremarkable. Stomach and Bowel: Stomach, small bowel loops, and colon are unremarkable. The appendix is thin walled and gas filled. Peritoneum: No abnormal intraperitoneal fluid. No free air. Ventral Wall: No hernia. Abdominal Nodes: No retroperitoneal or mesenteric adenopathy by size criteria. Vessels: Aorta and inferior vena cava are normal in size. There are scattered atheromatous calcifications throughout the aorta and iliac arteries bilaterally. PELVIS: Pelvic Organs: The uterus and ovaries are not visualized and may be surgically absent. Bladder: Unremarkable. Pelvic Nodes: No enlarged lymph nodes. Miscellaneous: No inguinal hernias are seen. Bones: Unremarkable. IMPRESSION: 1. No acute intra-abdominal findings. Normal appendix. 2. Hepatic steatosis. 3. Aortic atherosclerosis. Dictated by: Bita Correa M.D. on 03/18/2022 at 9:04 Approved by: Bita Correa M.D. on 03/18/2022 at 9:09
== END ==
PROVIDERS: PCP Internal Medicine; Referring Provider Internal Medicine; Visit Provider Internal Medicine
DX: R10.31 Right lower quadrant pain (principal); E03.9 Hypothyroidism, unspecified; M54.6 Pain in thoracic spine; J44.9 Chronic obstructive pulmonary disease, unspecified; I25.10 Atherosclerotic heart disease of native coronary artery without angina pectoris; I67.9 Cerebrovascular disease, unspecified; K76.0 Fatty (change of) liver, not elsewhere classified; I70.0 Atherosclerosis of aorta; J98.11 Atelectasis
CPT/HCPCS: 36415; 71046; 74177; 80053; 80061; 83690; 84443; 85025

== ENCOUNTER → 2022-11-30 11:43 | Outpatient (CLI) | payer MEDICARE, SELFPAY ==
--- NOTE | 2022-11-30 11:45 | DI.RAD.S_ITS ---
PROCEDURE: XR CHEST 2V INDICATIONS: followup 03/18/2022 abnormality TECHNIQUE: 2 views of the chest were acquired. COMPARISON: [facility], CT, CT ABDOMEN PELVIS W CON, 03/18/2022, 8:34. [facility], CR, CHEST 1 VIEW, 09/09/2016, 11:28. [facility], CR, XR CHEST 2V, 03/18/2022, 6:46. FINDINGS: Surgical changes and devices: None. Lungs and pleura: Lungs are mildly hyperexpanded. Possible partial axis of the right middle lobe does not appear significantly changed. No pleural effusions or pneumothorax. Mediastinum: Mediastinal contours are normal. Heart size is normal. Bones and chest wall: No suspicious bony abnormalities. Soft tissues appear unremarkable. IMPRESSION: No acute cardiopulmonary abnormality. Possible partial atelectasis of the right middle lobe appears similar when compared to the exam from 03/18/2022. If indicated clinically, CT of the chest could be performed for further evaluation. Approved by: Rudi Garcia M.D. on 11/30/2022 at 12:51
== END ==
PROVIDERS: PCP Internal Medicine; Referring Provider Internal Medicine; Visit Provider Internal Medicine
DX: J44.9 Chronic obstructive pulmonary disease, unspecified (principal)
CPT/HCPCS: 71046

== ENCOUNTER → 2022-12-06 09:36 | Outpatient (CLI) | payer MEDICARE, SELFPAY ==
--- NOTE | 2022-12-13 12:06 | PM.PFT.1 ---
Pulmonary Function Test Referral & Results Date Patient Seen: 12/06/22 Results: The spirometry demonstrates an FVC of 2.44 L which is 73% of predicted. The FEV1 was measured at 1.54 L which is 60% of predicted. The FEV1/FVC ratio was 63 which is 82% of predicted. Following the administration of bronchodilator there was no appreciable change. Lung volumes show an SVC of 2.25 L which is 72% of predicted. The diffusing capacity was measured at 15.96 which is 59% of predicted. No hemoglobin value was provided, so no correction for potential anemia could be made, if appropriate. The maximum voluntary ventilation was reduced Interpretation: This study demonstrates mild to moderate obstructive lung disease based on reduction FEV1. FEV1/FVC ratio is relatively preserved however There is also reduction in lung volumes suggesting the presence of olpr-hv-[id number] restrictive lung disease There is also moderate reduction diffusing capacity suggesting the presence of disease at the capillary alveolar level Clinical correlation suggested
== END ==
PROVIDERS: PCP Internal Medicine; Referring Provider Internal Medicine; Visit Provider Internal Medicine
DX: J44.9 Chronic obstructive pulmonary disease, unspecified (principal); F17.210 Nicotine dependence, cigarettes, uncomplicated
CPT/HCPCS: 94060; 94726; 94729

== ENCOUNTER → 2023-01-17 12:06 | Outpatient (CLI) | payer MEDICARE, SELFPAY ==
[2023-01-17 12:31] LABS: Appearance Urine UA CLOUDY; Bilirubin Urine UA 1+ (NEGATIVE); Color Urine UA YELLOW; Glucose Urine UA TRACE g/dL (Negative); Ketones Urine UA TRACE (NEGATIVE); Leukocyte Esterase Urine UA 1+ (NEGATIVE); Nitrite Urine UA NEGATIVE (Negative); Occult Blood Urine UA TRACE-INTACT (Negative); Protein Urine UA 3+ (Negative); Specific Gravity Urine UA 1.025 (1.000-1.035)
[2023-01-17 12:39] LABS: Ictotest Urine Negative (Negative)
[2023-01-17 13:06] LABS: RBC Urine None Seen (0-5/HPF)
[2023-01-17 13:07] LABS: Bacteria Urine Few (2-10); Culture Indicated Urine Specimen Cultured; Squamous Epithelial Cell Urine 1-5 /HPF (0-5/HPF); WBC Urine 30-100/HPF (0-5/HPF)
== END ==
PROVIDERS: PCP Internal Medicine; Referring Provider Internal Medicine; Visit Provider Internal Medicine
DX: R30.0 Dysuria (principal); R35.0 Frequency of micturition
CPT/HCPCS: 81001; 87086

== ENCOUNTER → 2024-01-03 10:52 | Outpatient (CLI) | payer MEDICARE, SELFPAY ==
--- NOTE | 2024-01-03 10:53 | DI.MG.S_ITS ---
BILATERAL DIGITAL SCREENING MAMMOGRAM 3D/2D WITH CAD: 01/03/2024 CLINICAL: Routine screening. Comparison is made to exams dated: 05/19/2021 mammogram, 05/30/2018 mammogram, and 12/16/2013 mammogram - [facility]. Both breasts are heterogeneously dense, which may obscure small masses (category c / 51-75% glandular tissue). Current study was also evaluated with a Computer Aided Detection (CAD) system. No significant masses, calcifications, or other findings are seen in either breast. There has been no significant interval change. IMPRESSION: NEGATIVE There is no mammographic evidence of malignancy. A 1 year screening mammogram is recommended. Based on the Tyrer Cuzick model (a risk assessment model) the patient's lifetime risk is 4.0% and her 10 year risk is 2.2%. According to the ACR, ACS, and NCCN guidelines, an annual breast MRI exam along with mammogram is recommended if the patient's lifetime risk is 20% or greater. This exam was interpreted at Station ID: [id number]. NOTE: For mammograms, a report in lay terms will be sent to the patient. Approximately 15% of breast malignancies will not be visualized mammographically. In the management of a palpable breast mass, a negative mammogram must not discourage biopsy of a clinically suspicious lesion. Electronically Signed By: Keaton franklin/sandrita:01/05/2024 07:57:53 letter sent: Normal Exam ACR BI-RADS Category 1: Negative [id number]
== END ==
PROVIDERS: PCP Internal Medicine; Referring Provider Internal Medicine; Visit Provider Internal Medicine
DX: Z12.31 Encounter for screening mammogram for malignant neoplasm of breast (principal); R92.333 Mammographic heterogeneous density, bilateral breasts
CPT/HCPCS: 77063; 77067

== ENCOUNTER → 2024-01-08 14:28 | Outpatient (CLI) | payer MEDICARE, SELFPAY ==
--- NOTE | 2024-01-08 14:29 | DI.RAD.S_ITS ---
PROCEDURE: XR DEXA AXIAL SKELETON INDICATIONS: Osteoporosis COMPARISON: [facility], , DEXA AXIAL SKELETON, 12/15/2015, 10:29. FINDINGS: Lumbar Spine: Bone mineral density 1.114 g/cm2, T score 0.6, statistically significant increased compared to prior by 6 percent. Left Hip: Bone mineral density 0.734 g/cm2, T score -1.7, statistically significant decreased compared to prior by 9.5 percent. Left Femoral Neck: Bone mineral density is 0.608 g/cm2, T score -2.2. Right Hip: Bone mineral density 0.735 g/cm2, T score -1.7, statistically significant decreased compared to prior by 6.2 percent. Right Femoral Neck: Bone mineral density 0.593 g/cm2, T score -2.3. Fracture Risk Calculation (when applicable): 10-year fracture risk of a major osteoporotic fracture 14 and of a hip fracture 5.4. (T score greater or equal to -1.0 to: NORMAL) (T score from -1.1 to -2.4: OSTEOPENIA) (T score less than or equal to -2.5: OSTEOPOROSIS) IMPRESSION: Low bone mineral density (osteopenia) by WHO classification. Follow-up guidelines as follows: Osteoporosis: Consider a repeat DEXA and Vertebral Fracture Assessment (VFA) exam in 2 years or sooner if medically necessary, to reassess this patient's status. Osteopenia: Consider a repeat DEXA in 2-3 years to reassess this patient's status, or if there is a new clinical indication. Normal: Consider a repeat DEXA in 5 years or sooner, or if there is a new clinical indication. Dictated by: Vitor Reed M.D. on 01/08/2024 at 17:44 Approved by: Vitor Reed M.D. on 01/08/2024 at 17:45
== END ==
PROVIDERS: PCP Internal Medicine; Referring Provider Internal Medicine; Visit Provider Internal Medicine
DX: M85.89 Other specified disorders of bone density and structure, multiple sites (principal); Z13.820 Encounter for screening for osteoporosis
CPT/HCPCS: 77080

== ENCOUNTER → 2024-02-03 12:51 | Outpatient (CLI) | payer MEDICARE, SELFPAY ==
[2024-02-04 08:10] LABS: Fecal Immunochemical Test Negative (Negative)
== END ==
PROVIDERS: PCP Internal Medicine; Referring Provider Internal Medicine; Visit Provider Internal Medicine
DX: Z12.11 Encounter for screening for malignant neoplasm of colon (principal)
CPT/HCPCS: 82274

== ENCOUNTER → 2024-04-22 12:20 | Outpatient (CLI) | payer MEDICARE, SELFPAY ==
[2024-04-22 13:30] LABS: Hematocrit 38.9 % (36-46); Hemoglobin 13.2 g/dL (12.0-16.0); Mean Corpuscular HGB Conc 33.8 % (30-36); Mean Corpuscular Hemoglobin 35.6 PG (26-34); Mean Corpuscular Volume 105.2 fL (80-100); Platelet Count 250 X10^3/uL (150-400); White Blood Cell Count 10.3 X10^3/uL (4.5-11.0)
[2024-04-22 14:00] LABS: Alanine Aminotransferase 24 IU/L (<35); Albumin 4.3 g/dL (3.5-5.0); Albumin Globulin Ratio 1.5 (1.0-2.8); Alkaline Phosphatase 91 U/L (38-126); Aspartate Aminotransferase 38 IU/L (14-36); Bilirubin Total 0.9 mg/dL (0.2-1.3); Blood Urea Nitrogen 15 mg/dL (7-17); Calcium 9.3 mg/dL (8.4-10.2); Carbon Dioxide 22 mmol/L (22-32); Chloride 101 mmol/L (98-107); Cholesterol 212 mg/dL (140-199); Estimated Glomerular Filt Rate > 60 mL/min (>60); Globulin 2.9 g/dL (1.7-4.1); Glucose 148 mg/dL (80-110); HEMOLYSIS < 15 (0-50); Potassium 4.5 mmol/L (3.4-5.1); Sodium 136 mmol/L (137-145); Total Protein 7.2 g/dL (6.3-8.2); Triglycerides 109 mg/dL (35-150)
[2024-04-22 14:09] LABS: Appearance Urine UA SL CLOUDY; Bilirubin Urine UA NEGATIVE (NEGATIVE); Color Urine UA YELLOW; Glucose Urine UA NEGATIVE (Negative); Ketones Urine UA NEGATIVE (NEGATIVE); Leukocyte Esterase Urine UA TRACE (NEGATIVE); Nitrite Urine UA NEGATIVE (Negative); Occult Blood Urine UA NEGATIVE (Negative); Protein Urine UA 1+ (Negative); Specific Gravity Urine UA 1.015 (1.000-1.035)
[2024-04-22 14:20] LABS: TSH w/ Reflex to FT4 1.07 uIU/mL (0.47-4.68)
[2024-04-22 14:24] LABS: Bacteria Urine Many (>30); RBC Urine None Seen (0-5/HPF); Squamous Epithelial Cell Urine 5-10 /HPF (0-5/HPF); Urine Volume 10mL (spun); WBC Urine 1-5/HPF (0-5/HPF)
[2024-04-22 14:33] LABS: Culture Indicated Urine Specimen Cultured
[2024-04-22 14:40] LABS: HDL Cholesterol 112 mg/dL (40-60); LDL Cholesterol Calculated 78 mg/dL (<100)
== END ==
LOC: LAB 12:21
PROVIDERS: PCP Internal Medicine; Referring Provider Internal Medicine; Visit Provider Internal Medicine
DX: E78.2 Mixed hyperlipidemia (principal); I10 Essential (primary) hypertension; I67.9 Cerebrovascular disease, unspecified; I25.10 Atherosclerotic heart disease of native coronary artery without angina pectoris; R82.90 Unspecified abnormal findings in urine
CPT/HCPCS: 36415; 80053; 80061; 81001; 84443; 85027; 87077; 87086

== ENCOUNTER → 2025-01-19 13:05 | Outpatient (CLI) | payer MEDICARE, SELFPAY ==
--- NOTE | 2025-01-19 13:07 | DI.RAD.S_ITS ---
PROCEDURE: XR SHOULDER LT MIN 2V INDICATIONS: fall, left shoulder pain TECHNIQUE: Three views of the left shoulder were acquired. COMPARISON: None. FINDINGS: Bones: There are no fracture or other osseous abnormalities. Acromioclavicular and glenohumeral joints: Normal in width and alignment without arthritic change Soft tissues: No soft tissue swelling, calcification or mass. IMPRESSION: Normal shoulder Dictated by: Royce Rodrigez M.D. on 01/20/2025 at 11:09 Approved by: Royce Rodrigez M.D. on 01/20/2025 at 11:10
--- NOTE | 2025-01-19 13:07 | DI.RAD.S_ITS ---
PROCEDURE: XR CERVICAL SPINE 2V OR 3V INDICATIONS: neck pain TECHNIQUE: Three views of the cervical spine were acquired. COMPARISON: None. FINDINGS: Cervical spine curvature and alignment: Normal. Bones: There are no osseous abnormalities. Disc spaces: Minimal degenerative disc disease C3-4 C4-5 and C5-6. There is mild C2-3 through C6-7 degenerative facet disease Soft tissues: No soft tissue swelling, calcification or mass. IMPRESSION: Mild degeneration Dictated by: Royce Rodrigez M.D. on 01/20/2025 at 11:08 Approved by: Royce Rodrigez M.D. on 01/20/2025 at 11:09
[2025-01-19 14:19] LABS: Aspartate Aminotransferase 78 IU/L (14-36); BUN Creatinine Ratio 21.7 (6-22); Blood Urea Nitrogen 13 mg/dL (7-17); Calcium 9.2 mg/dL (8.4-10.2); Carbon Dioxide 25 mmol/L (22-32); Chloride 105 mmol/L (98-107); Cholesterol 215 mg/dL (140-199); Estimated Glomerular Filt Rate > 60 mL/min (>60); Glucose 103 mg/dL (70-99); HDL Cholesterol 104 mg/dL (40-60); HEMOLYSIS < 15 (0-50); LDL Cholesterol Calculated 85 mg/dL (<100); Potassium 4.9 mmol/L (3.4-5.1); Sodium 139 mmol/L (137-145); Triglycerides 128 mg/dL (35-150)
[2025-01-19 14:49] LABS: TSH w/ Reflex to FT4 0.02 uIU/mL (0.47-4.68)
[2025-01-19 15:13] LABS: Free T4, Direct Thyroxine 0.81 ng/dL (0.78-2.19)
== END ==
PROVIDERS: PCP Internal Medicine; Referring Provider Internal Medicine; Visit Provider Internal Medicine
DX: M47.812 Spondylosis without myelopathy or radiculopathy, cervical region (principal); E03.9 Hypothyroidism, unspecified; M54.2 Cervicalgia; I25.10 Atherosclerotic heart disease of native coronary artery without angina pectoris; E78.2 Mixed hyperlipidemia; M25.512 Pain in left shoulder
CPT/HCPCS: 36415; 72040; 73030; 80048; 80061; 84439; 84443; 84450

== ENCOUNTER → 2025-09-06 12:16 | Outpatient (CLI) | payer MEDICARE, SELFPAY | PROVIDERS: PCP Internal Medicine; Referring Provider Internal Medicine; Visit Provider Internal Medicine | DX: Z12.11 Encounter for screening for malignant neoplasm of colon (principal) | CPT/HCPCS: 82274 ==

== ENCOUNTER → 2025-09-06 12:25 | Outpatient (CLI) | payer MEDICARE, SELFPAY ==
--- NOTE | 2025-09-06 12:26 | DI.RAD.S_ITS ---
PROCEDURE: XR CHEST 2V INDICATIONS: chest wall pain TECHNIQUE: 2 views of the chest were acquired. COMPARISON: [facility], , XR CHEST 2V, 11/30/2022, 11:55. [facility], CR, XR CHEST 2V, 03/18/2022, 6:46. FINDINGS: Surgical changes and devices: None. Lungs and pleura: Lungs are clear. No pleural effusions or pneumothorax. Mildly improved aeration of the right middle lobe. Mediastinum: Mediastinal contours are normal. Heart size is normal. Aortic atherosclerotic calcifications are present. Bones and chest wall: No significantly displaced rib fracture identified. No suspicious bony abnormalities. Soft tissues appear unremarkable. IMPRESSION: No acute cardiopulmonary abnormality is seen. Approved by: Rudi Garcia M.D. on 09/06/2025 at 17:29
== END ==
PROVIDERS: PCP Internal Medicine; Referring Provider Internal Medicine; Visit Provider Internal Medicine
DX: N64.4 Mastodynia (principal); I70.0 Atherosclerosis of aorta
CPT/HCPCS: 71046